=== PATIENT | female | born 1950 | race Caucasian/White ===

== ENCOUNTER 2016-04-11 10:26 | Emergency (ER) | payer OTHER, BC ==
[2016-04-11 11:03] LABS: COLOR YELLOW; LEUKOCYTE ESTERASE,URINE 1+ (NEGATIVE); NITRITE,URINE NEGATIVE (NEGATIVE)
[2016-04-11 11:12] VITALS: BP 116/77; PULSE 76; RESP 16; TEMP 97.5; O2SAT 96
[2016-04-11 11:18] LABS: WBC,URINE 25-50 /hpf (0-3)
[2016-04-11 11:19] LABS: BACTERIA 1+ /hpf (NONE SEEN); YEAST OCCASIONAL /hpf (NONE SEEN)
--- NOTE | 2016-04-11 11:20 | UCPHY ---
H & P Patient Type: Established Smoking Status: Never smoked Time Seen by Provider: 04/11/16 10:57 HPI/ROS: CHIEF COMPLAINT: Dysuria, Frequent urination HISTORY OF PRESENT ILLNESS: 65 year old female care with dysuria and frequent urination. The patient has a history of urinary tract infections. She thought that last year she had 3. They have all been treated with antibiotics. She has never required IV antibiotics. No history of kidney infection. She states that she had a bladder sling surgery in 2006 and has had problems with urinary tract infection since that time. No fevers or chills. Patient has chronic back pain associated with scoliosis, however denies any other new back pain or flank pain. No abdominal pain. No nausea or vomiting. No chest pain or difficulty breathing. No other URI symptoms. REVIEW OF SYSTEMS: Constitutional: No fever, no chills. Eyes: No double or blurry vision. ENT: No sore throat. Respiratory: No cough, no shortness of breath. Cardiac: No chest pain. Gastrointestinal: No abdominal pain, vomiting or diarrhea. No flank pain. Genitourinary: No dysuria. Musculoskeletal: Chronic back pain. No neck pain. Skin: No rashes. Neurological: No headache. 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 She is retired. (KayRadha guzmán) Physical Exam: General Appearance: Alert, no distress. Afebrile with a temperature 36.4. Nontoxic appearing. Eyes: Pupils equal and round. Extraocular motions are all intact. ENT: Mouth: Mucous membranes moist. Respiratory: No wheezing, rhonchi, or rales, lungs are clear to auscultation. No CVA tenderness bilaterally. Cardiovascular: Regular rate and rhythm. Gastrointestinal: Abdomen is soft and nontender, no masses, no rebound or guarding, bowel sounds normal. Neurological: Alert and oriented x 3, cranial nerves II through XII grossly intact Skin: Warm and dry, no rashes. Musculoskeletal: Nontender to palpate along the cervical, thoracic or lumbar spine. Neck is supple. Extremities: Full range of motion and no peripheral edema. Psychiatric: Patient is oriented X 3, there is no agitation. (Radha Moyer) Constitutional: Initial Vital Signs Temperature (C) 36.4 C 04/11/16 10:52 Heart Rate 76 04/11/16 10:52 Respiratory Rate 16 04/11/16 10:52 Blood Pressure 116/77 04/11/16 10:52 O2 Sat (%) 96 04/11/16 10:52 O2 Delivery Mode Room Air Allergies/Adverse Reactions: Sulfa (Sulfonamide Antibiotics) Allergy (Verified 06/17/15 08:54) Home Medications: Medication Instructions Recorded Sertraline HCl 06/17/15 Tizanidine HCl 06/17/15 Ciprofloxacin [Cipro 500 mg] 500 mg PO BID #10 tab 04/11/16 Phenazopyridine HCl [Pyridium] 200 mg PO Q8PRN PRN #6 tab 04/11/16 traMADol 04/11/16 Medical Decision Making ED Course/Re-evaluation: 65-year-old female presents to Urgent Care with dysuria, urgency and frequency with urination. She has a history of urinary tract infections associated with having a bladder sling surgery nearly 10 years ago. She states that this feels very similar. No fevers or chills. No new back pain. No abdominal pain. No reports of nausea or vomiting. Urinalysis reveals 25-50 white blood cells with 10-15 red blood cells and 1+ bacteria. Urine cultures pending. The patient typically takes Cipro when she has a urinary tract infection. She has taking Keflex in the past although she states my body just does not tolerate it." Patient was instructed to return to urgent care or go to the emergency department if she developed fever, vomiting, new back pain, abdominal pain, or if she felt worse in any way. She was comfortable with this plan. (Radha Moyer) Urgent Care PA supervision Physician documentation: The patient was evaluated and managed by the physician licensed nursing assistant. My co- signature indicates that I have reviewed this chart and I agree with the findings and plan of care as documented. I am is secondary supervising physician. (Ramón Larkin) Differential Diagnosis: Including but not limited to urinary tract infection, pyelonephritis, kidney stone, urethritis (Radha Moyer) - Data Points Microbiology Results: MICROBIOLOGY 04/11/16 10:58 Urine,Clean Catch Urine Culture - Preliminary Departure - Departure Disposition: Home, Routine, Self-Care Clinical Impression: Urinary tract infection Condition: Good Instructions: Urinary Tract Infection in Women (ED) Additional Instructions: Cipro 500 mg twice daily for 5 days. Pyridium up to 3 times daily if needed for symptoms of burning with urination and frequency with urination. Return to urgent care or go to the emergency department if you develop fever, new back pain, vomiting, or if you feel worse in any way. Call [phone] for the results of your urine culture in 48 hours. Referrals: Angi Ryan MD [Primary Care Provider] - 1 day, if not improved Prescriptions: Ciprofloxacin [Cipro 500 mg] 500 mg PO BID #10 tab Phenazopyridine HCl [Pyridium] 200 mg PO Q8PRN PRN #6 tab PRN Reason: P.r.n. dysuria - PQRS PQRS Measurement: 134: Depression screening and followup, PRIME MD-PHQ2 (12 years and older) Over the last 2 weeks, how often have you been bothered by any of the following problems? 1. Feeling down, depressed, or hopeless? 2. Little interest or pleasure in doing things? Patient answered no to both 1 and 2 130: Documentation of medications. Reviewed all patient medications, doses, route and frequency. 226: Do you smoke? No. 47: 65 and older: Advanced care planning. Patient has advanced directive. 51: 18 years old and older with diagnosis of COPD, spirometry performance. Patient has no history of COPD 52: 18 years old and older with COPD and symptoms of COPD or FEV1<60% predicted prescribed a B Agonist. Not applicable (Radha Moyer)
== END 2016-04-11 11:45 | disposition home or self-care (01) ==
LOC: CED 10:26
DX: N39.0 Urinary tract infection, site not specified (principal)
CPT/HCPCS: 81003-PO; 81015-PO; 99214-PO; G0463-PO

== ENCOUNTER → 2017-02-04 | Outpatient (CLI) | payer OTHER, BC | LOC: CIMAGING 08:52 | PROVIDERS: ATTEND Internal Medicine | DX: K80.20 Calculus of gallbladder without cholecystitis without obstruction (principal); K76.0 Fatty (change of) liver, not elsewhere classified; I70.0 Atherosclerosis of aorta; N28.1 Cyst of kidney, acquired | CPT/HCPCS: 76705-PO ==

== ENCOUNTER → 2017-06-11 | Outpatient (CLI) | payer OTHER, BC | LOC: BHFA 08:30 | PROVIDERS: ATTEND Internal Medicine Cardiovascular Disease | DX: R94.31 Abnormal electrocardiogram [ECG] [EKG] (principal); R07.9 Chest pain, unspecified; R06.02 Shortness of breath | CPT/HCPCS: 78452; 93017; 93306; A9500 ==

== ENCOUNTER → 2017-07-02 | Outpatient (CLI) | payer OTHER, BC | LOC: BMCIMAGING 16:09 | PROVIDERS: ATTEND Internal Medicine | DX: M51.36 Other intervertebral disc degeneration, lumbar region (principal); M41.86 Other forms of scoliosis, lumbar region ==

== ENCOUNTER → 2017-07-06 | Outpatient (CLI) | payer OTHER, BC | LOC: FIMAGING 10:18 | PROVIDERS: ATTEND Internal Medicine | DX: M47.26 Other spondylosis with radiculopathy, lumbar region (principal); M47.24 Other spondylosis with radiculopathy, thoracic region; M48.061 Spinal stenosis, lumbar region without neurogenic claudication ==

== ENCOUNTER 2017-07-24 11:33 | Emergency (ER) | payer OTHER, BC ==
[2017-07-24] MEDS ORDERED: HYOSCYAMINE SULFATE 0.125 MG TAB PO ONE (12:01)
[2017-07-24] MEDS ORDERED: LIDOCAINE 2% VISCOUS 15 ML UDCUP PO ONE (12:01)
[2017-07-24] MEDS ORDERED: MAG HYDROX/AL HYDROX/SIMETH 30 ML UDCUP PO ONE (12:01)
--- NOTE | 2017-07-24 12:05 | EDPHY ---
H & P Time Seen by Provider: 07/24/17 11:36 HPI/ROS: CHIEF COMPLAINT: Epigastric pain HISTORY OF PRESENT ILLNESS: 67-year-old female presents with a 3 day history of epigastric pain. 1 week ago she started prednisone for low back pain. Onset of epigastric pain 3 days ago. The pain is constant and cramping. She stopped taking prednisone yesterday, without relief. Associated with 1 episode of blood in stools 2 days ago; normal bowel movements since then. Feels nauseated, no vomiting. No alleviating or aggravating factors. Rula-Kathleen without relief. REVIEW OF SYSTEMS: complete 10 point ROS negative except at noted in the HPI Past Medical/Surgical History: LBP Cholecystectomy Migraine headaches Social History: PCP: Dr. Ryan Smoking Status: Former smoker Physical Exam: General Appearance: Alert, pleasant Eyes: Pupils equal and round, no conjunctival pallor ENT, Mouth: Mucous membranes moist Neck: Normal inspection Respiratory: Lungs are clear to auscultation Cardiovascular: Regular rate and rhythm Gastrointestinal: Abdomen is soft, epigastric tenderness, no peritoneal signs Neurological: A&O, nonfocal, normal gait Skin: Warm and dry, no rash Extremities: Normal inspection Psychiatric: Mood and affect normal Constitutional: Initial Vital Signs Temperature (C) 36.5 C 07/24/17 11:38 Heart Rate 89 07/24/17 11:38 Respiratory Rate 20 07/24/17 11:38 Blood Pressure 174/89 H 07/24/17 11:38 O2 Sat (%) 98 07/24/17 11:38 O2 Delivery Mode Room Air Allergies/Adverse Reactions: Sulfa (Sulfonamide Antibiotics) Allergy (Verified 07/24/17 11:45) Itching Home Medications: Medication Instructions Recorded Viki Allergy 07/24/17 Aspirin 07/24/17 Fluticasone Nasal 07/24/17 Ondansetron Odt [Zofran Odt 4 mg 4 mg PO Q4 PRN #6 tab 07/24/17 (*)] PROVENTIL HFA 07/24/17 Pantoprazole Sodium [Protonix 40mg 40 mg PO DAILY #20 tab 07/24/17 (*)] Premarin 07/24/17 Sertraline HCl 07/24/17 Tizanidine HCl 07/24/17 ZOLMItriptan 07/24/17 traMADol 07/24/17 Medical Decision Making ED Course/Re-evaluation: This pt presents with epigastric discomfort after taking steroids, most suggestive of acute gastritis. GI cocktail given with some relief. Protonix 40 mg orally given. Feels better. Labs reviewed; unconjugated hyperbilirubinemia present. Old labs reviewed and unconjugated bilirubin has always been high, though today's value is higher than previous. d/w pt, concurs, bilirubin always high, no prior dx. Pt has nausea, IV NS 1 liter and Zofran 4mg IV given. Better after Zofran. Will treat for gastritis/PUD. Abd pain precautions given. If sx persist, consider imaging/GI referral. Will f/u with PCP in 1-2 days. Differential Diagnosis: Differential diagnosis includes though it is not limited to appendicitis, cholecystitis, diverticulitis, pyelonephritis, bowel perforation, small bowel obstruction. - Data Points Laboratory Results: Laboratory Results 07/24/17 12:42 07/24/17 12:42 07/24/17 07/24/17 12:42 12:42 WBC 10.58 10^3/uL H 10^3/uL (3.80-9.50) RBC 4.73 10^6/uL 10^6/uL (4.18-5.33) Hgb 15.6 g/dL g/dL (12.6-16.3) Hct 42.9 % % (38.0-47.0) MCV 90.7 fL fL (81.5-99.8) MCH 33.0 pg pg (27.9-34.1) MCHC 36.4 g/dL g/dL (32.4-36.7) RDW 12.6 % % (11.5-15.2) Plt Count 323 10^3/uL 10^3/uL (150-400) MPV 9.6 fL fL (8.7-11.7) Neut % (Auto) 80.4 % H % (39.3-74.2) Lymph % (Auto) 10.5 % L % (15.0-45.0) [place] % (Auto) 8.2 % % (4.5-13.0) Eos % (Auto) 0.1 % L % (0.6-7.6) Baso % (Auto) 0.2 % L % (0.3-1.7) Nucleat RBC Rel Count 0.0 % % (0.0-0.2) Absolute Neuts (auto) 8.51 10^3/uL H 10^3/uL (1.70-6.50) Absolute Lymphs (auto) 1.11 10^3/uL 10^3/uL (1.00-3.00) Absolute Monos (auto) 0.87 10^3/uL H 10^3/uL (0.30-0.80) Absolute Eos (auto) 0.01 10^3/uL L 10^3/uL (0.03-0.40) Absolute Basos (auto) 0.02 10^3/uL 10^3/uL (0.02-0.10) Absolute Nucleated RBC 0.00 10^3/uL 10^3/uL (0-0.01) Immature Gran % 0.6 % % (0.0-1.1) Immature Gran # 0.06 10^3/uL 10^3/uL (0.00-0.10) Sodium 137 mEq/L mEq/L (135-145) Potassium 3.4 mEq/L L mEq/L (3.5-5.2) Chloride 96 mEq/L L mEq/L (97-110) Carbon Dioxide 26 mEq/l mEq/l (22-31) Anion Gap 15 mEq/L mEq/L (8-16) BUN 13 mg/dL mg/dL (7-23) Creatinine 0.6 mg/dL mg/dL (0.6-1.0) Estimated GFR > 60 Glucose 101 mg/dL H mg/dL (70-100) Calcium 10.4 mg/dL mg/dL (8.5-10.4) Total Bilirubin 3.8 mg/dL H mg/dL (0.1-1.4) Conjugated Bilirubin 0.6 mg/dL H mg/dL (0.0-0.5) Unconjugated Bilirubin 3.2 mg/dL H mg/dL (0.0-1.1) AST 14 IU/L IU/L (14-46) ALT 26 IU/L IU/L (9-52) Alkaline Phosphatase 42 IU/L IU/L (38-126) Total Protein 7.9 g/dL g/dL (6.3-8.2) Albumin 4.8 g/dL g/dL (3.5-5.0) Lipase 139 IU/L IU/L (23-300) Medications Given: Discontinued Medications Al Hydroxide/Mg Hydroxide (Maalox Susp) 30 ml PO ONCE ONE Stop: 07/24/17 12:02 Last Admin: 07/24/17 12:07 Dose: 30 ml Hyoscyamine Sulfate (Levsin, Hyomax-Sl) 0.25 mg PO ONCE ONE Stop: 07/24/17 12:02 Last Admin: 07/24/17 12:05 Dose: 0.25 mg Sodium Chloride (Ns) 1,000 mls @ 0 mls/hr IV EDNOW ONE; Wide Open PRN Reason: Protocol Stop: 07/24/17 13:48 Last Admin: 07/24/17 13:52 Dose: 1,000 mls Lidocaine (Lidocaine 2% Viscous) 15 ml PO ONCE ONE Stop: 07/24/17 12:02 Last Admin: 07/24/17 12:07 Dose: 15 ml Ondansetron HCl (Zofran) 4 mg IVP EDNOW ONE Stop: 07/24/17 13:48 Last Admin: 07/24/17 13:52 Dose: 4 mg Pantoprazole Sodium (Protonix) 40 mg PO EDNOW ONE Stop: 07/24/17 12:36 Last Admin: 07/24/17 12:42 Dose: 40 mg Departure - Departure Disposition: Home, Routine, Self-Care Clinical Impression: Acute gastritis Qualifiers: Gastritis type: other gastritis Gastritis bleeding: with bleeding Qualified Code(s): K29.01 - Acute gastritis with bleeding Condition: Good Instructions: Gastritis (ED) Additional Instructions: Take Maalox or Mylanta 30 min before meals and at bedtime. Take Protonix as prescribed. Eat a bland diet for 2-3 days. Return for worsening symptoms or any concerns. Referrals: Angi Ryan MD [Primary Care Provider] - 2-3 days, call for appt. Prescriptions: Ondansetron Odt [Zofran Odt 4 mg (*)] 4 mg PO Q4 PRN #6 tab PRN Reason: Nausea Pantoprazole Sodium [Protonix 40mg (*)] 40 mg PO DAILY #20 tab
[2017-07-24] MEDS ORDERED: PANTOPRAZOLE SODIUM 40 MG TAB PO ONE (12:35)
[2017-07-24 12:47] LABS: PLATELET COUNT 323 10^3/uL (150-400)
[2017-07-24] MEDS ORDERED: NS 1,000 ML IV ONE (13:47)
[2017-07-24] MEDS ORDERED: ONDANSETRON 4 MG/2 ML VIAL IVP ONE (13:47)
[2017-07-24 14:31] VITALS: BP 144/76
== END 2017-07-24 14:36 | disposition home or self-care (01) ==
LOC: CED 11:33
DX: K29.01 Acute gastritis with bleeding (principal); E86.9 Volume depletion, unspecified; Z79.82 Long term (current) use of aspirin; Z87.891 Personal history of nicotine dependence; Z90.49 Acquired absence of other specified parts of digestive tract
CPT/HCPCS: 96361; 96374; 99284; J2405; 80048-PO; 80076-PO; 83690-PO; 85025-PO

== ENCOUNTER 2017-09-18 05:45 | Day surgery (SDC) | payer OTHER, BC ==
[2017-09-18] MEDS ORDERED: BUPIVACAINE 0.25% 30 ML SDV ONE (06:45)
[2017-09-18] MEDS ORDERED: EPINEPHrine 1 MG/ML INJ ONE ×2 (06:46→06:58)
[2017-09-18] MEDS ORDERED: CHLORHEXIDINE GLUC HIBICLENS 118 ML BTL TP ONE (06:46)
[2017-09-18] MEDS ORDERED: THROMBIN (BOVINE) 5,000 UNIT VIAL TP ONE (06:46)
[2017-09-18] MEDS ORDERED: BACITRACIN 50,000 UNITS/10 ML SYR IRR ONE (06:47)
[2017-09-18] MEDS ORDERED: ACETAMINOPHEN 500 MG TAB PO ONE ×2 (07:00→09:47)
[2017-09-18] MEDS ORDERED: ceFAZolin 2 GM/DEXTROSE 100 ML IV ONE ×2 (07:00→09:47)
[2017-09-18] MEDS ORDERED: GABAPENTIN 300 MG CAP PO ONE ×2 (07:00→09:47)
--- NOTE | 2017-09-18 07:07 | PDHPUP ---
History & Physical Update H&P update statement: This history and physical update is based on an assessment of the patient which was completed after admission or registration (within 24 hours), but prior to the surgery/procedure. H&P update: H&P reviewed & patient examined, no change in patient's condition since H&P completed
--- NOTE | 2017-09-18 07:15 | PDANEPAE ---
ANE History of Present Illness 67 year old with HNP ANE Past Medical History - Cardiovascular History Hx Hypertension: No Hx Arrhythmias: No Hx Chest Pain: No Hx Coronary Artery / Peripheral Vascular Disease: No Hx CHF / Valvular Disease: No Hx Palpitations: No Cardiovascular History Comment: MILD MITRAL REGURITATION - Pulmonary History Hx COPD: No Hx Asthma/Reactive Airway Disease: No Hx Recent Upper Respiratory Infection: No Hx Oxygen in Use at Home: No Hx Sleep Apnea: No Sleep Apnea Screening Result - Last Documented: Negative Pulmonary History Comment: SEASONAL ASTHMA PET ALLERGENS - Neurologic History Hx Cerebrovascular Accident: No Hx Seizures: No Hx Dementia: No Neurologic History Comment: RARE MIGRAINES - Endocrine History Hx Diabetes: No - Renal History Hx Renal Disorders: Yes Renal History Comment: UTI 04/2016. PREV BLADDER REPAIR - Liver History Hx Hepatic Disorders: No - Neurological & Psychiatric Hx Hx Neurological and Psychiatric Disorders: Yes Neurological / Psychiatric History Comment: DEPRESSION - Cancer History Hx Cancer: Yes Cancer History Comment: SKIN - GI History Hx Gastrointestinal Disorders: Yes Gastrointestinal History Comment: PREDNISONE CAUSED GI BLEED. GASTRITIS RELATED TO N-SAIDS - Other Health History Other Health History: LT FOOT NUMBNESS. SCOLIOSIS. SPINAL STENOSIS. DDD. RADICULAR PAIN. ARTHRITIS - Chronic Pain History Chronic Pain: Yes (LOWER LUMBAR) - Surgical History Prior Surgeries: KIMBERLI 02/2017 AT [facility]. CERVICAL FUSION. BREAST BX. APPENDECTOMY. REMVL LT THIGH SARCOMA. PELVIC FLOOR RECONSTRUCTION. UTERINE ABLATION. ANE Review of Systems Review of systems is: negative Review of Systems: - Exercise capacity METS (RN): 4 METS ANE Patient History - Allergies Allergies/Adverse Reactions: alcohol [wine] Allergy (Verified 09/10/17 13:07) Cheese Allergy (Verified 09/10/17 13:07) MIGRAINES cocoa [chocolate] Allergy (Verified 09/10/17 13:07) MIGRAINES,ORAL SWELLING electrolyzed water [From Microcyn] Allergy (Verified 09/10/17 13:06) hypochlorous acid [From Microcyn] Allergy (Verified 09/10/17 13:06) sodium chloride [From Microcyn] Allergy (Verified 09/10/17 13:06) sodium hypochlorite solution [From Microcyn] Allergy (Verified 09/10/17 13:06) Sulfa (Sulfonamide Antibiotics) Allergy (Verified 07/24/17 11:45) Itching NITRATES IN FOODS Allergy (Uncoded 09/10/17 13:07) - Home Medications Home medications: home medication list seen and reviewed Home Medications: Viki Allergy DAILY 07/24/17 [Last Taken Unknown] Aspirin DAILY 07/24/17 [Last Taken Unknown] Fluticasone Nasal [place]ARE PRN 07/24/17 [Last Taken Unknown] PROVENTIL HFA IH PRN 07/24/17 [Last Taken Unknown] Premarin VG ONCE 07/24/17 [Last Taken Unknown] Sertraline HCl HS 07/24/17 [Last Taken Unknown] Tizanidine HCl HS 07/24/17 [Last Taken Unknown] ZOLMItriptan PRN 07/24/17 [Last Taken Unknown] - NPO status NPO Status: no food or drink >8 hours - Smoking Hx Smoking Status: Former smoker ANE Labs/Vital Signs - Vital Signs Height: 166.37 cm Weight: 56.699 kg ANE Physical Exam - Airway Neck exam: FROM Mallampati Score: Class 1 Mouth exam: normal dental/mouth exam - Pulmonary Pulmonary: no respiratory distress, clear to auscultation - Cardiovascular Cardiovascular: regular rate and rhythym - ASA Status ASA Status: II ANE Anesthesia Plan Anesthesia Plan: general endotracheal anesthesia
[2017-09-18] MEDS ORDERED: MIDAZOLAM 2 MG/2 ML VIAL ONE (07:17)
[2017-09-18] MEDS ORDERED: MIDAZOLAM 2 MG/2 ML VIAL IVP ONE (07:17)
[2017-09-18] MEDS ORDERED: PROPOFOL 200 MG/20 ML VIAL ONE (07:34)
[2017-09-18] MEDS ORDERED: KETAMINE 500 MG/10 ML VIAL ONE (07:34)
[2017-09-18] MEDS ORDERED: fentaNYL 100 MCG/2 ML INJ ONE ×2 (07:34→09:56)
[2017-09-18] MEDS ORDERED: REMIFENTANIL HCL 1 MG VIAL ONE (07:34)
[2017-09-18] MEDS ORDERED: PROPOFOL/EMULSION 500 MG/50 ML BOTTLE IV ONE (07:35)
[2017-09-18] MEDS ORDERED: DEPO METHYLPREDNISOLONE 40 MG/ML SDV ONE (08:52)
[2017-09-18] MEDS ORDERED: NALOXONE HCL 0.4 MG/ML INJ IVP PRN (09:11)
[2017-09-18] MEDS ORDERED: PROMETHAZINE HCL 25 MG/ML INJ IVP PRN (09:11)
[2017-09-18] MEDS ORDERED: ONDANSETRON 4 MG/2 ML VIAL IVP PRN (09:11)
[2017-09-18] MEDS ORDERED: HYDROmorphONE/DILAUDID 1 MG/ML INJ IVP PRN (09:11)
--- NOTE | 2017-09-18 09:42 | POSTANESTH ---
Post Anesthetic Evaluation Cardiovascular Status: Normal, Stable Respiratory Status: Normal, Stable Level of Consciousness/Mental Status: Can Participate in Eval Pain Control: Adequate, Prn Tx Ordered Nausea/Vomiting Control: Adequate, Prn Tx Ordered Complications Possibly Related to Anesthesia: None Noted
[2017-09-18] MEDS ORDERED: HYDROmorphONE/DILAUDID 1 MG/ML INJ ONE (09:56)
--- NOTE | 2017-09-18 09:56 | POSTOPPROG ---
Post Op Note Date of Operation: 09/18/17 Surgeon: Mary Jo Patel Paraffin Plant Operator: Vandana Reese NP Anesthesiologist: Warm Anesthesia: GET(General Endotracheal) Pre-op Diagnosis: L3-4 stenosis Procedure: Left L3-4 GERA Inf/Abcess present in the surg proc area at time of surgery?: No Depth: Deep Incisional (Fascial) EBL: 50-100 Total fluids administered: See anesthesia Complications: None Date of Surgery: 09/18/17 Post Op Day: 0 Assessment/Plan: Assessment: 67 yr old s/p left L3-4 GERA Plan: -Ok to discharge home when criteria met -Please call neurosurgery with questions/concerns Subjective: Waking up in PACU Objective: Waking up in PACU LANE x4 BLE 5/5 Sensation intact to light touch BLE Dressing CDI Appropriate Neuro Check Frequency Ordered: Yes
[2017-09-18] MEDS: fentaNYL 100 MCG/2 ML INJ IVP PRN ×2 (09:59→10:05)
[2017-09-18] MEDS ORDERED: oxyCODONE IR 5 MG TAB PO ONE (10:00)
[2017-09-18] MEDS ORDERED: METHOCARBAMOL 750 MG TAB PO ONE (10:01)
--- NOTE | 2017-09-18 10:05 | GOP ---
[f rep st] OPERATIVE REPORT DATE OF OPERATION: 09/18/2017 SURGEON: Janine Patel MD NEUROSURGEON: Janine Patel MD. STATISTICAL ENGINEER: Vandana Reese NP. PREOPERATIVE DIAGNOSIS: Lumbar scoliosis, herniated disk, left L3-4, left L4 radiculopathy. POSTOPERATIVE DIAGNOSIS: Lumbar scoliosis, herniated disk, left L3-4, left L4 radiculopathy. PROCEDURE PERFORMED: Left L3-4 microdiskectomy, microscope. FINDINGS: ESTIMATED BLOOD LOSS: 10 cc. INDICATIONS: The patient is a 67-year-old with terrible left-sided pain and an MRI that demonstrated a large inferior disk extrusion at L3-4 compressing the left L4 root adjacent to the L4 pedicle. I discussed this with her. The fragment did enter the proximal neural foramen, but it was also located in the spinal canal. I suggested a left-sided microdiskectomy at L3-4. She understands that she ma y ultimately end up getting surgical correction of her scoliotic curve, but I did not think that such a large surgery is necessary at this time. She knew that if this surgery failed, we would have to c onsider a more extensive surgery. The risks of CSF leak, nerve injury, continued symptoms were discu ssed. She accepted these risks. She wanted to proceed. DESCRIPTION OF PROCEDURE: Patient was taken to the operating room, placed in the supine position. G eneral anesthesia was begun. She was flipped prone onto the Dexter frame. Care was taken to pad all points of contact. Her back was sterilely prepped and draped in the usual fashion. A localizing x- ray was taken. We made a 15 mm incision above the L3-4 interspace. The subcutaneous tissue was diss ected using Bovie cautery down to the fascia, and a subperiosteal dissection was made down the left L 3, the rostral L4 lamina. A self-retaining retractor was placed. We shot a localizing x-ray. We dr illed a very inferior left L3 laminotomy and a rostral L4 laminotomy, opened ligamentum flavum, and u nder the microscope, decompressed the left lateral recess of the spinal canal, right adjacent to the L4 pedicle, stretching from the L3-[address] down to the inferior L4 pedicle border. We swe pt the L4 nerve root medially and underneath the nerve root, but below the L3-4 disk was a large free fragment of disk, and we removed this disk. We then swept into the neural foramen and got another v michael large fragment out of the foramen underneath the L4 root there. This nicely relaxed the thecal s ac. We did not perform a formal diskectomy of the L3-4 disk itself. The ball-tip probe was used to palpate the disk and while there was a slight disk bulge, there was no evidence of nerve compression right over the L3-4 disk itself. The inferior rent in the anulus at L3-4 was identified. We did not , however, enter the disk itself. I was able to pass a ball-tip probe all the way down the L4-5 disk , and there was no evidence of any compression all the way to that level. We irrigated with antibiot ic saline solution, placed some Depo-Medrol over the left L3-4 laminotomy site, and then closed the i ncision in multiple layers using Vicryl sutures. PDS was placed in the skin itself. The patient was reversed from anesthesia, extubated, and transferred to recovery room in stable condition. COMPLICATIONS: None. /[id number]/MODL
[2017-09-18 10:37] VITALS: BP 154/84
[2017-09-18] MEDS ORDERED: METHOCARBAMOL 500 MG TAB PO ONE (10:45)
== END 2017-09-18 11:47 | disposition home or self-care (01) ==
LOC: FSGY 05:45
PROVIDERS: ATTEND Neurological Surgery
PROC: 00NY0ZZ Release Lumbar Spinal Cord, Open Approach (ICD-10-PCS; principal; 2017-09-18 07:30)
PROC: 0SB20ZZ Excision of Lumbar Vertebral Disc, Open Approach (ICD-10-PCS; principal; 2017-09-18 07:30)
PROC: BR191ZZ Fluoroscopy of Lumbar Spine using Low Osmolar Contrast (ICD-10-PCS; 2017-09-18 07:30)
DX: M51.16 Intervertebral disc disorders with radiculopathy, lumbar region (principal); M41.86 Other forms of scoliosis, lumbar region; M51.36 Other intervertebral disc degeneration, lumbar region; M48.061 Spinal stenosis, lumbar region without neurogenic claudication; M47.16 Other spondylosis with myelopathy, lumbar region; F32.9 Major depressive disorder, single episode, unspecified; Z88.2 Allergy status to sulfonamides; Z98.1 Arthrodesis status
CPT/HCPCS: J0171; J0690; J1030; J1170; J2250; J2704; J3010

== ENCOUNTER → 2018-02-22 | Outpatient (CLI) | payer OTHER, BC | LOC: FIMAGING 10:59 | PROVIDERS: ATTEND Neurological Surgery | DX: M51.36 Other intervertebral disc degeneration, lumbar region (principal); M84.88 Other disorders of continuity of bone, other site ==